=== PATIENT | female | born 1995 | race Caucasian/White ===

== ENCOUNTER 2023-04-03 12:25 | Emergency (ER) | payer BC, SELFPAY ==
[2023-04-03 12:39] VITALS: BP 111/70; PULSE 78; RESP 16; TEMP 36.9; O2SAT 100
--- NOTE | 2023-04-03 13:14 | ED.SKABFB ---
HPI - Skin/Abscess/Foreign Bdy General Chief complaint: Skin/Abscess/Foreign Body Stated complaint: RASH ON FACE Time Seen by Provider: 04/03/23 13:14 Source: patient Mode of arrival: ambulatory Limitations: no limitations History of Present Illness HPI narrative: 27-year-old female presented for complaint red bumps around the chin and lower lip over the past few days. Sites are clustered, tender, and have some honey colored drainage. She states she has a skin lesion under the left nostril for about 3 weeks. She is concerned she has spread impetigo. Also reports using new skin products. 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 Endorses history of impetigo and MRSA. Denies lip, tongue, or throat swelling, shortness of breath or wheezing. Denies changes to soap, detergent, lotion, or any other exposures. No one else in the house or any contacts with similar symptoms. Review of Systems Review of Systems: CONSTITUTIONAL: Denies body aches, fever, chills, or sweats. EYES: Denies visual changes, redness, or discharge. ENT: Denies rhinorrhea, congestion CARDIOVASCULAR: Denies chest pain, palpitations, or edema. RESPIRATORY: Denies cough or dyspnea. GASTROINTESTINAL: Denies abdominal pain, nausea, vomiting, or diarrhea. SKIN: reports rash around chin MUSCULOSKELETAL: Denies back pain, joint pain, or myalgia. NEUROLOGIC: Denies headache, numbness, tingling, or weakness. [facility] Past Medical History Medical History (Updated 04/03/23 @ 14:16 by Jennifer Bejarano APRN) PCOS (polycystic ovarian syndrome) Comments At time of signature, I have reviewed and agree with nursing past medical, surgical, social and family history unless otherwise noted. Please see nursing chart for further information. There is no relevant family history pertinent to the presenting complaint Exam Narrative: GENERAL: Well-appearing HEAD: Normocephalic, atraumatic. EYES: conjunctivae clear, and EOMI. ENT: Mucous membranes moist. Oropharynx without edema, erythema or lesions. NECK: Supple. No lymphadenopathy CHEST: Clear to auscultation. HEART: Regular rate and rhythm. SKIN: Warm, dry. Clustered erythematous vesicles noted to skin around chin, one lesion under nose; honey colored crust c/w impetigo. Sites are tender. No purulence or fluctuance. NEURO: Alert and oriented x3. Course Course Emergency Course: Patient is aware of diagnosis, understands and agrees to treatment plan. Anticipatory guidance given. Patient agrees to follow-up as directed and is aware of reasons to seek care at the emergency department. Portions of this record may have been created with voice recognition software Level of Care: Express Care Visit Vital Signs Vital signs: Vital Signs Temperature 98.5 F 04/03/23 12:39 Pulse Rate 78 04/03/23 12:39 Respiratory Rate 16 04/03/23 12:39 Blood Pressure 111/70 04/03/23 12:39 Pulse Oximetry 100 04/03/23 12:39 Temperature 98.5 F 04/03/23 12:39 Pulse Rate 78 04/03/23 12:39 Respiratory Rate 16 04/03/23 12:39 Blood Pressure 111/70 04/03/23 12:39 Pulse Oximetry 100 04/03/23 12:39 Reviewed MDM - Skin/Abscess/Foreign Bdy MDM Narrative Medical decision making narrative: Discussed physical exam findings. Advised supportive measures and signs/symptoms to go to the ER. Pt is appropriate for outpt treatment and f/u. Instructed patient to go to nearest ER immediately for any worsening symptoms including but not limited to: fever, spreading rash, pain, sore throat, headache, dizziness, chest pain, trouble breathing, or any symptoms concerning to the patient. Differential Diagnosis Differential diagnosis: Likely abscess of skin or subcutaneous tissue, viral exanthem, dermatophytosis, urticaria, herpes zoster, allergic reaction to drug, cellulitis, eczema, impetigo and contact dermatitis Discharge Plan Discharge Clinical Impression: Impetigo Patient Disposition: Home, Self-Care Cond
== END 2023-04-03 13:31 | disposition home or self-care (01) ==
PROVIDERS: Emergency Provider Nurse Practitioner Family
DX: L01.00 Impetigo, unspecified (principal)
CPT/HCPCS: 99213; G0463